=== PATIENT | female | born 2000 | race African-American/Black ===

== ENCOUNTER 2019-03-13 00:43 | Emergency (ER) | payer OTHER ==
[~2019-03-13] VITALS: Ht 154.9 cm; Wt 77.1 kg
[2019-03-13 00:52] VITALS: BP 142/64
== END 2019-03-13 01:33 | disposition home or self-care (01) ==
LOC: M.ERS 00:43
DX: S70.362A Insect bite (nonvenomous), left thigh, initial encounter (principal); S70.361A Insect bite (nonvenomous), right thigh, initial encounter; L03.116 Cellulitis of left lower limb; L03.115 Cellulitis of right lower limb; F17.200 Nicotine dependence, unspecified, uncomplicated; W57.XXXA Bitten or stung by nonvenomous insect and other nonvenomous arthropods, initial encounter; Y92.89 Other specified places as the place of occurrence of the external cause; Y93.89 Activity, other specified; Y99.8 Other external cause status

== ENCOUNTER 2019-09-21 09:30 | Emergency (ER) | payer MEDICAID ==
[~2019-09-21] VITALS: Ht 157.5 cm; Wt 79.4 kg
[2019-09-21] MEDS ORDERED: PNV 29-1 TABLE1 EACH PO (09:40)
[2019-09-21] MEDS ORDERED: ZANTAC 150MG T150 M1 PO (09:43)
[2019-09-21 09:54] LABS: HEMATOCRIT 27.6 % (37.0-47.0); HEMOGLOBIN 8.8 gm/dL (12.0-15.0); MCH 24.4 pg (26.0-34.0); MCHC 31.8 g/dL (28.0-37.0); MCV 76.6 fL (80.0-100.0); MPV 7.4 fl. (7.2-11.1); NUCLEATED RBCS 0 /100WBC; PLATELET COUNT* 329 thou/uL (150-400); RBC 3.61 mil/uL (4.20-5.00); RDW-CV 18.2 % (10.5-14.5); WBC 12.7 thou/uL (4.0-11.0)
[2019-09-21 10:07] LABS: ANION GAP 11 mmol/L (7-16); BUN 8 mg/dL (7-18); CALCIUM 8.5 mg/dL (8.5-10.1); CHLORIDE 103 mmol/L (98-107); CO2 24 mmol/L (21-32); CREATININE 0.6 mg/dL (0.6-1.3); GLUCOSE 71 mg/dL (70-99); POTASSIUM 3.6 mmol/L (3.5-5.1); SODIUM 138 mmol/L (136-145)
[2019-09-21 10:18] LABS: ALBUMIN 2.7 g/dL (3.4-5.0); ALKALINE PHOSPHATASE 67 U/L (46-116); NT-PRO BRAIN NAT PEPTIDE < 5 pg/mL (<300); SGOT 21 U/L (15-37); SGPT 32 U/L (30-65); TOTAL BILIRUBIN 0.2 mg/dL (<0.1-1.0); TOTAL PROTEIN 7.1 g/dL (6.4-8.2)
[2019-09-21 10:37] LABS: URINE BILIRUBIN NEGATIVE (Negative); URINE BLOOD NEGATIVE (Negative); URINE CLARITY CLEAR; URINE COLOR YELLOW; URINE GLUCOSE-RANDOM NEGATIVE (Negative); URINE KETONES NEGATIVE (Negative); URINE LEUKOCYTES-REFLEX NEGATIVE (Negative); URINE NITRITE-REFLEX NEGATIVE (Negative); URINE PROTEIN NEGATIVE (Negative); URINE SPECIFIC GRAVITY 1.025 (1.005-1.030); URINE UROBILINOGEN 0.2 E.U./dl (0.2-1.0)
[2019-09-21 10:40] VITALS: BP 110/68
[2019-09-21 10:40] LABS: ABSOLUTE EOSINOPHILS 0.3 thou/uL (0.0-0.7); ABSOLUTE MONOCYTES 0.6 thou/uL (0.0-1.2); ABSOLUTE NEUTROPHILS 9.8 thou/uL (1.6-8.1)
[2019-09-21 10:41] LABS: PLATELET ESTIMATE ADEQUATE
[2019-09-21 10:42] LABS: ANISOCYTOSIS 1+
--- NOTE | 2019-09-22 11:05 | EKG ---
[place] [address] ELECTROCARDIOGRAM REPORT Name: JAIMIE GRAHAM Abigail Room: [facility]#: [id number] Admission: 09/21/19 Attend Phys: Discharge: 09/21/19 Date of : 89 Date of Service: 09/21/1950 Report #: [id number] THIS REPORT FOR: //name// [facility] ED Test Date: 2019-09-21 Test Time: 09:48:45 Pat Name: JAIMIE GRAHAM Department: Room: Gender: Supervisor [employer]: : 2000 Requested By: Garrett Giordano Order Number: [id number] MD: Adan oJnes Measurements Intervals [place] Rate: 87 P: 72 [place]: 139 QRS: 54 QRSD: 90 T: 26 QT: 347 QTc: 418 Interpretive Statements Sinus rhythm No previous ECG available for comparison Electronically Signed On 09-22-2019 11:04:07 [employer] by Adan Jones [email or web address] <ELECTRONICALLY SIGNED> By: Adan Jones MD, [facility] 09/22/19 1104 [id number] Adan Jones MD, FACC /EPI
== END 2019-09-21 10:40 | disposition home or self-care (01) ==
LOC: M.ERS 09:30
PROVIDERS: Family Medicine
DX: O26.892 Other specified pregnancy related conditions, second trimester (principal); R06.00 Dyspnea, unspecified; Z3A.25 25 weeks gestation of pregnancy